=== PATIENT | female | born 1975 | race African-American/Black ===

== ENCOUNTER 2020-06-30 00:27 | Emergency (ER) | payer MEDICAID, OTHER ==
[~2020-06-30] VITALS: Ht 180.3 cm; Wt 86.0 kg
[~2020-06-30 00:27] MED LIST: BENA5TAB; HYDR25TA
[2020-06-30 01:14] LABS: EOSINOPHILS % 2.1 % (0.0-5.0); HEMOGLOBIN. 10.8 g/dL (12.0-16.0); LYMPHOCYTES % 31.8 % (20.0-50.0); MEAN CORPUSCULAR HEMOGLOBIN 26.2 pg (28.0-32.0); MEAN CORPUSCULAR VOLUME 79.7 fL (81.0-99.0); MONOCYTES % 10.6 % (2.0-8.0); NEUTROPHILS % 54.5 % (40.0-76.0); PLATELET 312 x1000/uL (130-400); RED BLOOD CELL COUNT 4.14 mill/uL (4.2-5.4); RED CELL DISTRIBUTION WIDTH 17.4 % (11.6-14.6)
[2020-06-30 01:22] LABS: CHLORIDE 102 mEq/L (98-107)
[2020-06-30 01:26] LABS: ETHANOL BLOOD < 10 mg/dL
[2020-06-30 02:19] LABS: METHADONE URINE SCREEN NEGATIVE (NEGATIVE); OPIATES URINE SCREEN NEGATIVE (NEGATIVE); PHENCYCLIDINE URINE SCREEN NEGATIVE (NEGATIVE)
[2020-06-30 02:20] LABS: *AMPHETAMINES SCREEN URINE NEGATIVE (NEGATIVE); *BARBITURATES SCREEN URINE NEGATIVE (NEGATIVE); *BENZODIAZEPINES SCREEN URINE NEGATIVE (NEGATIVE); *COCAINE SCREEN URINE NEGATIVE (NEGATIVE); CANNABINOID URINE SCREEN NEGATIVE (NEGATIVE)
[2020-06-30] MEDS ORDERED: POTASSIUM CHLORIDE 20MEQ TABLET SR PO SCH (03:30)
[2020-06-30 05:00] VITALS: BP 135/76
== END 2020-06-30 05:29 | disposition home or self-care (01) ==
LOC: ER 00:27
DX: R00.2 Palpitations (principal); F41.9 Anxiety disorder, unspecified; I10 Essential (primary) hypertension
CPT/HCPCS: 36415; 71045; 80053; 80305; 80320; 81025; 83880; 84443; 84484; 85025; 85379; 93005; 99285; G0480

== ENCOUNTER 2021-10-03 03:28 | Inpatient (IN) | payer MEDICAID, OTHER ==
[~2021-10-03] VITALS: Ht 175.3 cm; Wt 72.6 kg
[~2021-10-03 03:28] MED LIST changes: -HYDR25TA; +HYDR25TA PO
[2021-10-03] MEDS ORDERED: NITROGLYCERIN OINT 1GM/INCH UDPKT TD ONE (03:45)
[2021-10-03] MEDS ORDERED: ASPIRIN 81MG TABLET PO ONE (03:45)
[2021-10-03 04:26] LABS: BASOPHILS % 1.3 % (0.0-2.0); EOSINOPHILS % 1.5 % (0.0-5.0); HEMATOCRIT. 33.1 % (36.0-48.0); HEMOGLOBIN. 10.5 g/dL (12.0-16.0); MEAN CORPUSCULAR HEMOGLOBIN 23.6 pg (28.0-32.0); MEAN CORPUSCULAR VOLUME 74.4 fL (81.0-99.0); MEAN PLATELET VOLUME 7.2 fl (7.4-10.4); MONOCYTES % 12.3 % (2.0-8.0); NEUTROPHILS % 53.9 % (40.0-76.0); PLATELET 385 x1000/uL (130-400); RED BLOOD CELL COUNT 4.44 mill/uL (4.2-5.4); RED CELL DISTRIBUTION WIDTH 19.5 % (11.6-14.6)
[2021-10-03 04:36] LABS: CHLORIDE 107 mEq/L (98-107)
[2021-10-03 04:40] LABS: HCG SCREEN NEGATIVE
[2021-10-03] MEDS ORDERED: ONDANSETRON HCL 4MG/2ML INJ IV PRN (08:45)
[2021-10-03] MEDS ORDERED: ACETAMINOPHEN 325MG TABLET PO PRN (08:45)
[2021-10-03 09:20] VITALS: BP 141/76
[2021-10-03] MEDS: ASPIRIN 81MG TABLET PO SCH (10:12)
[2021-10-03 12:00] VITALS: BP 138/74
[2021-10-03] MEDS: BENAZEPRIL 5MG TABLET PO SCH (13:14)
[2021-10-03 15:57] VITALS: BP 131/72
[2021-10-03 20:00] VITALS: BP 131/71
[2021-10-04] VITALS: BP 117/58
[2021-10-04 02:09] LABS: *AMPHETAMINES SCREEN URINE NEGATIVE (NEGATIVE); *BARBITURATES SCREEN URINE NEGATIVE (NEGATIVE); *BENZODIAZEPINES SCREEN URINE NEGATIVE (NEGATIVE)
[2021-10-04 02:10] LABS: *COCAINE SCREEN URINE NEGATIVE (NEGATIVE); CANNABINOID URINE SCREEN NEGATIVE (NEGATIVE); METHADONE URINE SCREEN NEGATIVE (NEGATIVE); OPIATES URINE SCREEN NEGATIVE (NEGATIVE); PHENCYCLIDINE URINE SCREEN NEGATIVE (NEGATIVE)
[2021-10-04 04:00] VITALS: BP 144/57
[2021-10-04 07:50] VITALS: BP 128/62
[2021-10-04] MEDS: ASPIRIN 81MG TABLET PO SCH (09:08)
[2021-10-04] MEDS: BENAZEPRIL 5MG TABLET PO SCH (09:08)
[2021-10-04 11:59] VITALS: BP 124/68
[2021-10-04 13:21] VITALS: BP 122/66
[2021-10-04] MEDS ORDERED: ATORVASTATIN CALCIUM 10MG TABLET PO SCH (21:00)
== END 2021-10-04 14:45 | disposition home or self-care (01) | DRG 203 ==
LOC: ER 03:28 → 6WST 04:35 → ENRESERV 07:21
PROVIDERS: ADMIT Internal Medicine; ATTEND Internal Medicine
DX: M94.0 Chondrocostal junction syndrome [Tietze] (principal); E44.1 Mild protein-calorie malnutrition; D64.9 Anemia, unspecified; Z20.822 Contact with and (suspected) exposure to COVID-19; I10 Essential (primary) hypertension; Z82.49 Family history of ischemic heart disease and other diseases of the circulatory system; Z68.23 Body mass index [BMI] 23.0-23.9, adult
CPT/HCPCS: 36415; 71045; 80053; 80061; 80305; 83880; 84443; 84484; 84703; 85025; 85379; 93005; 93306; 99285